=== PATIENT | female | born 1960 | race Caucasian/White ===

== ENCOUNTER 2021-06-04 01:37 | Day surgery (SDC) | payer OTHER, SELFPAY ==
[2021-05-27 10:13] VITALS: BMI 30.6
--- NOTE | 2021-06-03 11:03 | P.PNAN_ITS ---
Anes - Initial Pre Proc Eval Procedure: Operation Date: 06/04/21 14:00 Proposed Procedures p Right Breast Tissue Patient Experience Coordinator Placement with Alloderm - Donaldo Dominguez MD Date/Time: 06/03/21 11:03 Surgeon: Donaldo Dominguez MD Pre Op Diagnosis: acquired breast deformity Patient Data Age: 61 Gender: F Height: 1.63 m Weight: 80.9 kg Allergies Allergy/AdvReac Type Severity Reaction Status Date / Time piperacillin [From Zosyn] Allergy Intermediate Rash on Verified 06/04/21 12:27 back after 3 days tazobactam [From Zosyn] Allergy Intermediate Rash on Verified 06/04/21 12:27 back after 3 days Home Medications Medication Instructions Recorded Confirmed Type metformin 1,000 mg tablet 1,000 mg PO QPM 04/01/21 06/04/21 History diazepam 5 mg tablet 5 mg PO TID PRN #15 tablet 05/22/21 06/04/21 Rx docusate sodium 100 mg capsule 100 mg PO BID #14 cap 05/22/21 06/04/21 Rx ondansetron HCl 4 mg tablet 4 mg PO Q6H PRN #30 tablet 05/22/21 06/04/21 Rx oxycodone-acetaminophen 5 mg-325 1 tablet PO Q6H PRN #15 tablet 05/22/21 06/04/21 Rx mg tablet atorvastatin 10 mg PO HS 05/27/21 06/04/21 History lisinopril-hydrochlorothiazide 1 tablet PO DAILY 05/27/21 06/04/21 History multivitamin 1 tablet PO DAILY 05/27/21 06/04/21 History Patient hx anesthesia problems: none Family hx anesthesia problems: none PMFSH Past Medical History Medical History Breast cancer Diabetes Surgical History Surgical History History of cholecystectomy History of hysterectomy History of lumpectomy of right breast Family History Family History Father Diabetes mellitus Social History Social History Smoking status: Never smoker Alcohol intake: current Substance use: never Living arrangements: with family Spiritual care concerns: No Anes - Eval Final PreProcedure Day of Procedure 06/03/21 11:03 Patient weight: obese Heart: regular rate and rhythm Lungs: clear to auscultation and normal air movement Airway: Mallampati scale class II Neurological: alert and oriented Last oral intake: >/= 8 hours ASA classification: III Emergent: no Anesthetic plan: proceed Anesthesia type and monitoring: general LMA Informed Consent: The patient's anesthetic plan and its attendant risks and benefits were discussed with the patient/family/POA. Questions were solicited and answers provided to the satisfaction of the patient/family/POA.
[2021-06-04] VITALS (7 sets, daily range): BP systolic 101–145; BP diastolic 59–85; PULSE 59–101; RESP 15–23; TEMP 36.4–36.5; O2SAT 98–100
[2021-06-04 12:22] LABS: Urine Cotinine NEGATIVE
[2021-06-04] MEDS: LACTATED RINGERS 1,000 ML 30 ML IV CONT ×2 (12:35→16:22)
[2021-06-04 12:42] LABS: Glucose Point of Care 125 mg/dl (65-105)
--- NOTE | 2021-06-04 14:04 | SUR.PREOP ---
1400-PT AWARE SURGEON DELAYS SELF MINIMUM OF 1 HOUR.
--- NOTE | 2021-06-04 14:30 | WPDHPUPDATE1 ---
History and Physical Update Update Date/Time: 06/04/21 14:30 History and Physical has been reviewed, including an updated exam of the patient. There are NO changes in the patient's condition. Risks, benefits, and alternatives have been discussed and questions answered. Patient agrees to proceed with procedure.
--- NOTE | 2021-06-04 14:53 | W.PM.PROC2 ---
Procedure Note - Detailed Date of Procedure 06/04/21 Pre-op Diagnosis acquired breast deformity Post-op Diagnosis same Procedure Performed 1. Right breast tissue numerical control machine tool operator 2. Alloderm right breast 16 x 20cm (320 cm2) Surgeon Donaldo Dominguez MD Anesthesia general Findings Right prepectoral breast reconstruction with Alloderm wrap. Tissue numerical control machine tool operator REF# [id number] filled with air 100cc additional. Alloderm Select TissueMatrix RTU Lot [id number] REF [id number]. 16 x 20cm (320 cm2) Description of Procedure Preoperative risks, benefits, alternatives were discussed in extensive detail. I want her to be very realistic about the risks involved as well as expectations. We discussed her history of radiation on the right breast. I was very up front honest that this can carry up to a 50% failure rate. She understands this. She would like proceed. All questions answered to her satisfaction today. She voiced understanding. Consent obtained. She was marked in the preoperative holding area with her verification. Taken to the operating room placed supine on the operating room table. Anesthesia provided by anesthesiology and prepped and draped in a standard sterile fashion. Surgical time-out was taken. 1% lidocaine and 0.25% Marcaine with epinephrine was used anesthetize locally. We had discussed her incision plan and reconstruction plane. IMF incision was made I continued dissection in a prepectoral pocket. Several clips were identified which would have been against the tissue numerical control machine tool operator. As such these were removed (just medial of central breast. Border inferior / middle third of breast. The tissue with this was sent to pathology. Copiously irrigated with saline solution and verified a strict hemostasis. On the back table I prepared the tissue numerical control machine tool operator. I completed AlloDerm wrap. Fifteen Suresh drain was placed. This was sutured in place with 3-0 nylon. Copiously irrigated the pocket with triple antibiotic Betadine solution. Tissue numerical control machine tool operator was placed and tacked into place on inferior tabs with 2-0 Vicryl. Closed using 2-0 Vicryl followed by 3-0 Monocryl in a running subcuticular 4-0 Monocryl. Final closure was tissue glue. I added additional fill volume with air. Estimated Blood Loss 10 Drains Yes (15 Suresh) Packing No Pathology yes (Right breast tissue with perioperative clips.) Complications No immediate complications Condition stable Disposition PACU
[2021-06-04] MEDS: ceFAZolin 2 GM/D5W 50 ML 2 GM/50 ML BAG IVPB (15:23)
[2021-06-04] MEDS: BUPIVACAINE HCL 0.25% PF 30 ML VIAL 10 ML INFILTRATE (16:04)
[2021-06-04] MEDS: LIDO 1%/EPINEPHRINE 1:100,000 50 ML VIAL 10 ML INFILTRATE (16:04)
--- NOTE | 2021-06-04 16:17 | SUR.OPER ---
Breast tissue was given to [facility] PCT at 1600, confirmed with pathology before case that pathologist available until 1700
[2021-06-04] MEDS: fentaNYL CITRATE INJ (*CRX) 100 MCG/2 ML VIAL 25 MCG IV PUSH ×2 (16:50→16:59)
[2021-06-04 16:58] LABS: Glucose Point of Care 130 mg/dl (65-105)
== END 2021-06-04 18:10 | disposition home or self-care (01) ==
PROVIDERS: PCP Nurse Practitioner; Visit Provider Surgery Plastic and Reconstructive Surgery
PROC: (CPT 19357; principal; 2021-06-04 14:00)
DX: Z42.1 Encounter for breast reconstruction following mastectomy (principal); N64.89 Other specified disorders of breast; L90.5 Scar conditions and fibrosis of skin; Z85.3 Personal history of malignant neoplasm of breast; Z92.3 Personal history of irradiation; E11.9 Type 2 diabetes mellitus without complications; Z98.890 Other specified postprocedural states; Z79.84 Long term (current) use of oral hypoglycemic drugs; Z79.899 Other long term (current) drug therapy; E66.9 Obesity, unspecified; Z68.30 Body mass index [BMI] 30.0-30.9, adult
CPT/HCPCS: 19357; 15777; 80307; 82948; 88305; A9270; C1789; J0690; J1100; J1170; J1580; J2250; J2405; J2704; J3010; J7030; J7120; Q4116

== ENCOUNTER 2021-12-19 00:22 | Day surgery (SDC) | payer OTHER, SELFPAY ==
[2021-12-10 15:23] VITALS: BMI 30.2
--- NOTE | 2021-12-10 15:28 | SUR.PREOP ---
Report to the Outpatient Waiting Room, entrance under the green pavilion located off [facility], at time 0600_ on date 12/19/21 . OR Time: _07 . - You and your visitor will be asked a series of questions to screen for COVID 19 for your protection. - A mask is required within the hospital. Preoperative COVID Testing Requirements: No COVID Test needed if: (proof is required; if not received patient will have Rapid Test prior to entry) - Patient has received COVID Vaccine at least 14 days prior to procedure date or - Patient has positive COVID test result within last 90 days of surgery date. COVID Test needed if above criteria is not met If not COVID vaccinated a COVID test must be conducted within 72 hours of surgery and patient is asked to isolate self from time of testing until procedure. You will go to the [facility] for your COVID testing. The [facility] site is located at the corner of [address] [facility]. You will only be called if COVID results are positive and your surgeon may reschedule your elective surgery date. Patients may have clear liquids (water, carbonated beverages, clear teas, apple juice) until 3 hours prior to surgery with a maximum of 20 ounces. - No food from midnight until time of surgery - Infants may have breast milk until 4 hours before surgery, formula 6 hours prior to surgery. - Children will be allowed to drink immediately following surgery. If applicable, please bring a bottle or sippy cup to assist with drinking. Juice, water, soda, and popsicles are readily available. For infants on formula, please bring formula the day of surgery. Pacifiers are allowed. Take the following medications with a SIP of water the morning of surgery: __levothyroxine Medications to discontinue per physician _vitamins Date to take last dose12/16/21 Please no make-up, nail yoruba, hairspray, perfume, deodorant, or body powder the day of surgery. No jewelry (including any body piercings) or valuables the day of surgery, leave them at home. Please take a shower or bath the night before, or the morning of, surgery with an antibacterial soap. Wear comfortable, loose fitting clothing. Children are encouraged to wear pajamas. - Jewelry must be removed prior to entering the operating room. Rings and piercings that are not removed may be cut off. - The hospital will not accept responsibility for valuables. - Please leave all valuables, including medications, at home the day of surgery. If you are going home after surgery, a licensed road driver must drive you home. - NO public transportation without another adult. - We recommend that an adult stay with you for 24 hours following discharge. - We also recommend that you do not drive, make important decision, drink alcoholic beverages, or take any drugs that were not prescribed by your health care provider for at least 24 hours after your discharge time. For Pediatric surgeries, we recommend two adults accompany the child home (only one inside the building at this time). One visitor will be allowed to accompany the patient into the hospital. Patients visitor will be instructed to remain with patient at all times or leave the building. We will allow the visitor to come back to the postoperative area when patient is ready. Follow any additional instructions given to you from your surgeon. Telephone instructions given to lizz cottrell and asked if any additional questions and then verbalized understanding. Patient advised to call surgeon office or pre surgery nurse liaison [phone] if any additional questions.
[2021-12-19] VITALS (9 sets, daily range): BP systolic 131–155; BP diastolic 80–94; PULSE 90–114; RESP 10–20; TEMP 36.8–37.1; O2SAT 94–100; BMI 29.5
[2021-12-19 06:27] LABS: Urine Cotinine NEGATIVE
--- NOTE | 2021-12-19 06:30 | W.PM.PROC2 ---
Procedure Note - Detailed Date of Procedure 12/19/21 Pre-op Diagnosis hx of breast CA Post-op Diagnosis Same Procedure Performed 1. Right tissue filling technician for implant 2. Right breast fat grafting 90cc 3. Right breast capsulotomy 4. Left breast mastopexy 5. Left breast fat grafting 180cc 6. Suction lipectomy left lateral breast / chest wall 150cc Surgeon Donaldo Dominguez MD Anesthesia General Findings Right breast implant. Ernie Ryan Softtouch REF# [id number] Left breast inverted T, superior pedicle mastopexy Description of Procedure Preoperatively the risks, benefits, alternatives were discussed in extensive detail. I want her to be very realistic about the risks involved as well as expectations. Made sure answered everyone of her questions to her satisfaction. Consent was obtained. She was taken to the operating room placed supine on the operating room table. Anesthesia provided by anesthesiology. Prepped and draped in a standard sterile fashion. Tegaderm nipple shileds were utilized. Surgical time-out was taken. Thorough abdominal examination was completed in stab incisions were made. Using a 3 mm multi hole suction cannula completed suction lipectomy in multiple planes and passes to gravity separation device. Allowed adequate time for complete separation of the adipose tissue. I then proceeded to the breast. On the right breast stab incisions were made in a infiltrated with fat grafting to the volume above in multiple planes in passes utilizing a 4mm basket cannula. Fifteen blade used to excise a section of the scar along IMF on the right breast. Dissection was continued down until the filling technician was identified removed. I completed capsulotomy laterally. Copiously irrigated with 1500cc of saline containing solution. Verified strict hemostasis. I then irrigated with triple antibiotic Betadine solution. Using a no-touch technique and a Alonzo funnel the implant was introduced into the pocket. This was closed using 2-0 Vicryl followed by 3-0 strata fix in a running subcuticular 4-0 Monocryl and glue. On the left breast I tailor tacked the breast into position. Placed the patient the sitting position and verified my markings. Laterally she had significant adiposity and did not have symmetry so I utilized the 4mm basket cannula on suction based on S.A.F.E. technique to improve contour. Marked out the nipple-areolar complex 42 mm. She was placed supine. I de-epithelialized the superior pedicle. A 10 blade used to make the remainder of the incisions and I de-epithelialized the inferior portion of the breast which would be used for an auto augmentation flap. Elevated breast as necessary to provide inset. I then copiously irrigated with saline solution and verified strict hemostasis. I then tailor tacked the breast into position again placed her in a sitting position to verify my markings. While in the sitting position stab incision were utilized and infiltrated adipose tissue multiple planes and passes to the volume as above. She was placed supine. I closed using 0 strata fix along the IMF. 2-0 PDS along the vertical incision. 3-0 strata fix around the nipple-areolar complex. 3-0 Monocryl along the vertical. 3-0 strata fix along the IMF. I then ran a running subcuticular 4-0 Monocryl for final closure. Steri-Strips were placed in the left breast. Patient was woken taken to the PACU without difficulty. All instrument sponge counts were correct at the end of the case. Estimated Blood Loss 50 Drains No Packing No Pathology None sent Complications No immediate complications Condition Stable Disposition PACU
[2021-12-19] MEDS: LACTATED RINGERS 1,000 ML 30 ML IV CONT ×2 (06:44→10:21)
--- NOTE | 2021-12-19 06:44 | SUR.PREOP ---
500ML IVF BOLUS INFUSING PER ORDER
[2021-12-19 06:46] LABS: Glucose Point of Care 121 mg/dl (65-105)
--- NOTE | 2021-12-19 07:01 | WPDANESEPPF ---
Anes - Initial Pre Proc Eval Procedure: Operation Date: 12/19/21 07:30 Proposed Procedures p Right Breast Tissue Biometric Fingerprinting Technician for Implant, - Donaldo Dominguez MD s Right Breast Fat Grafting, - Donaldo Dominguez MD s Left Breast Mastopexy, Possible Left Breast Fat Grafting - Donaldo Dominguez MD Date/Time: 12/19/21 07:01 Surgeon: Donaldo Dominguez MD Pre Op Diagnosis: hx of breast CA Patient Data Age: 61 Gender: F Height: 1.63 m Weight: 78 kg Last Vital Signs Temp 37.1 C 12/19/21 06:26 Pulse 91 12/19/21 06:26 Resp 18 12/19/21 06:26 BP 131/80 12/19/21 06:26 Pulse Ox 97 12/19/21 06:26 Allergies Allergy/AdvReac Type Severity Reaction Status Date / Time piperacillin [From Zosyn] Allergy Intermediate Rash on Verified 12/19/21 06:23 back after 3 days tazobactam [From Zosyn] Allergy Intermediate Rash on Verified 12/19/21 06:23 back after 3 days Home Medications Medication Instructions Recorded Confirmed Type metformin 1,000 mg tablet 1,000 mg PO QPM 04/01/21 12/19/21 History atorvastatin 10 mg PO HS 05/27/21 12/19/21 History lisinopril-hydrochlorothiazide 1 tablet PO DAILY 05/27/21 12/19/21 History multivitamin 1 tablet PO DAILY 05/27/21 12/19/21 History docusate sodium 100 mg capsule 100 mg PO DAILY #14 cap 11/25/21 12/10/21 Rx ondansetron 4 mg disintegrating 4 mg PO Q8H #21 tablet 11/25/21 12/10/21 Rx tablet carisoprodol 350 mg tablet 350 mg PO TID PRN #21 tablet 11/26/21 12/10/21 Rx hydrocodone 5 mg-acetaminophen 300 1 tablet PO Q6H PRN #30 tablet 11/29/21 12/10/21 Rx mg tablet ergocalciferol (vitamin D2) 1,000 unit PO DAILY 12/10/21 12/19/21 History [Vitamin D2] levothyroxine 25 mcg PO DAILY 12/10/21 12/19/21 History Laboratory Tests 12/19/21 12/19/21 06:09 06:42 POC Capillary Glucose 121 mg/dl H mg/dl (65-105) Cotinine Negative Patient hx anesthesia problems: none Family hx anesthesia problems: none Results Review: All pre-operative results and documents have been reviewed as part of the pre-operative evaluation. [facility], LAT[facility] Past Medical History Medical History (Updated 12/19/21 @ 07:01 by Marin Shaikh MD) Breast cancer Diabetes HTN (hypertension) Surgical History Surgical History History of cholecystectomy History of hysterectomy History of lumpectomy of right breast Family History Family History Father Diabetes mellitus Social History Social History Smoking status: Never smoker Alcohol intake: current Substance use: never Living arrangements: alone Spiritual care concerns: No Anes - Eval Final PreProcedure Day of Procedure 12/19/21 07:01 Patient weight: obese Heart: regular rate and rhythm Lungs: clear to auscultation Airway: Mallampati scale class II Neurological: alert and oriented Last oral intake: >/= 8 hours ASA classification: III Emergent: no Anesthetic plan: proceed Anesthesia type and monitoring: general ETT and standard monitoring Results Review: All pre-operative results and documents have been reviewed as part of the pre-operative evaluation. Informed Consent: The patient's anesthetic plan and its attendant risks and benefits were discussed with the patient/family/POA. Questions were solicited and answers provided to the satisfaction of the patient/family/POA.
--- NOTE | 2021-12-19 07:16 | WPDHPUPDATE1 ---
History and Physical Update Update Date/Time: 12/19/21 07:16 History and Physical has been reviewed, including an updated exam of the patient. There are NO changes in the patient's condition. Risks, benefits, and alternatives have been discussed and questions answered. Patient agrees to proceed with procedure.
[2021-12-19] MEDS: ceFAZolin 2 GM/D5W 50 ML 2 GM/50 ML BAG IVPB (07:28)
[2021-12-19] MEDS: TRANEXAMIC ACID 1,000MG/ISO100 1,000 MG/100 ML BAG 200 MG IVPB (07:28)
[2021-12-19] MEDS: NACL 0.9% IRRIG POUR BOTTLE 900 ML, GENTAMICIN SULFATE INJ 160 MG, CLINDAMYCIN PHOS INJ... IRRIGATION (08:38)
[2021-12-19] MEDS: LACTATED RINGERS IRRIG 1,000 ML, LIDOCAINE HCL 1% LOCAL INJ 50 ML, EPINEPHrine HCL INJ ... INFILTRATE (08:52)
[2021-12-19] MEDS: ONDANSETRON INJ 4 MG/2 ML VIAL IV PUSH (10:35)
[2021-12-19 11:05] LABS: Glucose Point of Care 257 mg/dl (65-105)
[2021-12-19 11:05] LABS: Glucose Point of Care 237 mg/dl (65-105)
[2021-12-19 11:05] LABS: Glucose Point of Care 240 mg/dl (65-105)
[2021-12-19] MEDS: diphenhydrAMINE HCl INJ 50 MG/ML VIAL 12.5 MG IV PUSH (11:06)
--- NOTE | 2021-12-19 11:09 | SUR.PHASEI ---
1100 - dr. mckeon aware of accucheck. no orders received at this time. pt encouraged to resume diabetes medication once at home. pt verbalized understanding.
[2021-12-19] MEDS: SCOPOLAMINE 1.5 MG PATCH TRANSDERM (11:57)
== END 2021-12-19 12:32 | disposition home or self-care (01) ==
PROVIDERS: PCP Nurse Practitioner; Visit Provider Surgery Plastic and Reconstructive Surgery
PROC: (CPT 11970; principal; 2021-12-19 07:30)
PROC: (CPT 15769; 2021-12-19 07:30)
PROC: (CPT 19316; 2021-12-19 07:30)
DX: Z42.1 Encounter for breast reconstruction following mastectomy (principal); Z85.3 Personal history of malignant neoplasm of breast; L90.5 Scar conditions and fibrosis of skin; E11.9 Type 2 diabetes mellitus without complications; I10 Essential (primary) hypertension; Z79.84 Long term (current) use of oral hypoglycemic drugs; E66.9 Obesity, unspecified; Z68.29 Body mass index [BMI] 29.0-29.9, adult; Z79.899 Other long term (current) drug therapy; Z92.3 Personal history of irradiation
CPT/HCPCS: 11970; 15771; 15772 ×3; 19316; 80307; 82948; A9270; C9290; J0171; J0330; J0690; J1100; J1170; J1200; J1580; J2250; J2370; J2405; J2704; J3010; J7030; J7120

== ENCOUNTER 2023-09-10 10:37 | Outpatient (CLI) | payer BC, SELFPAY ==
--- NOTE | ~2023-09-10 | MM_ITS ---
MM_MAGSEEDLT_MG DATE: 09/10/2023 12:16 INDICATION: Preoperative for localization of grouped microcalcifications in the very posterior upper outer quadrant of the left breast (Grouped microcalcifications of interest were too deep to access stereotactically.) TECHNIQUE: The purpose of the procedure, technique and potential complications were discussed with th e patient. The patient verbalized understanding and gave consent. Timeout procedure was performed. The left breast was placed in compression in ML projection, with biopsy grid over the posterior aspec t of the breast. The microcalcifications were identified at the very posterior margin of the image. The skin over the medial aspect of the left breast was prepared with sterile Betadine solution and 1% lidocaine local anesthetic. A 12 cm mag seed introductory needle was introduced toward the area of interest with confirmation of proper direction on MLO views. Subsequently craniocaudal images were exposed but the microcalcifications could not be located becaus e of their depth. The mag seed was deposited at the estimated position of the microcalcifications. Final ML and October lateral craniocaudal views reveal a may exceed in close proximity t o the microcalcifications, which are approximately 1 cm posterior and 1.5 cm lateral to the MAG3 C ma rker. COMPARISON: 08/18/2023 diagnostic left mammogram IMPRESSION: Preoperative mammographically guided mag seed localization of the very posterior upper ou ter grouped microcalcifications; as a result of difficulties because of inability to visualize the mi crocalcifications on craniocaudal imaging during the marker placement due to their very posterior dep th, please note that the grouped microcalcifications of interest are 1 cm posterior and 1.5 cm latera l to the mag seed Dr. Win telephoned Dr. Stewart's office and informed Edith of the 1 cm posterior 1.5 cm offset of the microcalcifications from the marker. She indicated that the doctor was out of town but that she would inform the doctor accordingly. Reviewed, dictated and finalized at [facility]. Reviewed, dictated and finalized at [facility]. ANY ACCOUNTANT IMPRESSION: Preoperative mammographically guided mag seed localization of the v jacque posterior upper outer grouped microcalcifications; as a result of difficult ies because of inability to visualize the microcalcifications on craniocaudal i maging during the marker placement due to their very posterior depth, please no te that the grouped microcalcifications of interest are 1 cm posterior and 1.5 cm lateral to the mag seed Dr. Win telephoned Dr. Stewart's office and informed Edith of the 1 cm posterior 1.5 cm offset of the microcalcifications from the marker. She indicated that t he doctor was out of town but that she would inform the doctor accordingly.
== END 2023-09-10 10:38 | disposition home or self-care (01) ==
PROVIDERS: PCP Nurse Practitioner; Visit Provider Surgery
DX: R92.8 Other abnormal and inconclusive findings on diagnostic imaging of breast (principal)
CPT/HCPCS: 19281; A4648